=== PATIENT | female | born 1965 | race Two or more races ===

== ENCOUNTER 2023-08-11 15:12 | Emergency (ER) | payer MEDICAID, OTHER ==
[~2023-08-11] VITALS: Ht 157.5 cm; Wt 61.8 kg
[2023-08-11 18:38] VITALS: BP 125/69; PULSE 80; RESP 18; TEMP 98; O2SAT 100
[2023-08-11 20:49] LABS: COVID19 ANTIGEN SOFIA FIA NEGATIVE (NEGATIVE); Rapid Influenza A Negative (Negative); Rapid Influenza B Negative (Negative)
== END 2023-08-11 21:43 | disposition home or self-care (01) ==
LOC: ER 15:12
DX: J06.9 Acute upper respiratory infection, unspecified (principal); E78.5 Hyperlipidemia, unspecified; Z20.822 Contact with and (suspected) exposure to COVID-19
CPT/HCPCS: 36415; 71046; 87426; 87804